=== PATIENT | male | born 1970 | race Caucasian/White ===

== ENCOUNTER 2017-03-25 20:20 | Emergency (ER) | payer BC ==
[2017-03-25 20:25] VITALS: BP 132/87; PULSE 67; RESP 18; TEMP 97.5
--- NOTE | 2017-03-25 21:09 | ED ---
Lower Extremity Injury HPI - General Chief Complaint: Extremity Injury, Lower Stated Complaint: Leg Pain Time Seen by Provider: 03/25/17 20:30 Source: patient, family, RN notes reviewed Mode of arrival: ambulatory Limitations: no limitations - History of Present Illness Initial Comments: This is a 47-year-old male who presents to the emergency department with chief complaint of right calf pain. Patient states that at approximately 6:30 this evening he was loading things into the bed of his truck. He states that he was in an awkward position and felt a pop in his right calf. He states it feels like his calf is coiled up. He states "I know I tore my calf." Patient presented to [facility] and received an x-ray which demonstrated possible calf rupture. They advised him to present to the emergency department. Patient states that at rest pain is 4/10 but on ambulation pain is 10/10. He states he is unable to ambulate due to pain. Denies any other injury or trauma. Denies fever, chills, chest pain, shortness of breath, abdominal pain, nausea or vomiting, constipation or diarrhea, dysuria or hematuria, numbness or tingling, headache or vision changes. - Related Data Home Medications Medication Instructions Recorded Confirmed Esomeprazole Magnesium [NexIUM] 20 mg PO DAILY 03/25/17 03/25/17 Allergies Allergy/AdvReac Type Severity Reaction Status Date / Time Penicillins Allergy Rash/Hives Verified 03/25/17 20:34 Review of Systems ROS Statement: Those systems with pertinent positive or pertinent negative responses have been documented in the HPI. ROS Other: All systems not noted in ROS Statement are negative. Past Medical History Past Medical History: GERD/Reflux History of Any Multi-Drug Resistant Organisms: None Reported Past Surgical History: Bowel Resection Past Psychological History: No Psychological Hx Reported Smoking Status: Never smoker Past Alcohol Use History: None Reported Past Drug Use History: None Reported General Exam - General Exam Comments Initial Comments: General: Awake and alert, well-developed; in no apparent distress. Lying on ED stretcher with at bedside. HEENT: Head atraumatic, normocephalic. Pupils are equal, round and reactive to light. Extraocular movements intact. Neck: Supple. Normal ROM. Cardiovascular: Regular rate and rhythm. No murmurs, rubs or gallops. Chest symmetrical. Respiratory: Lungs clear to auscultation bilaterally. No wheezes, rales or rhonchi. Normal respiratory effort with no use of accessory muscles. Musculoskeletal: There is exquisite tenderness on palpation of right calf. Pain in calf is elicited with dorsiflexion of right foot. Patient has normal range of motion in right ankle and right knee. Sensation is intact. Pedal and posterior tibial pulses are 2+ equal and palpable bilaterally. Parkinson test negative. No tenderness on palpation of the Achilles insertion site on calcaneus. Skin: [place], warm and dry without rashes or lesions. Neurological: Alert and oriented x3. CN II-XII grossly intact. Speech is fluent and answers are appropriate. No focal neuro deficits. Psychiatric: Normal mood and affect. No overt signs of depression or anxiety noted. Limitations: no limitations Course Vital Signs 03/25/17 20:22 Temperature 97.5 F L Pulse Rate 67 Respiratory 18 Rate Blood Pressure 132/87 O2 Sat by Pulse 99 Oximetry Medical Decision Making - Medical Decision Making This is a 47-year-old male who presents to the emergency department with chief complaint of right calf injury. Patient states that x-ray performed at [facility] demonstrated a possible calf rupture. This case was discussed with attending physician, Dr. Arora. There is tenderness on palpation of right calf. No erythema or swelling noted. Pulses are equal and palpable. Parkinson test is negative. Discussed with patient that management will consist of follow- up with orthopedics. Patient and requested further testing at this time, requesting an ultrasound of lower extremity. They were informed that regardless of results patient will be discharged home with referral to orthopedics. I spoke with ultrasound at 2143 who informed me that they do not do ultrasounds of tendons. Patient will be discharged home at this time. He was provided with referral to orthopedics. Patient refuses any prescription for pain medications. Disposition Clinical Impression: Strain of calf muscle Disposition: HOME SELF-CARE Condition: Good Instructions: Muscle Strain (ED) Additional Instructions: Please follow up with Dr. Goodrich orthopedics within 1-2 days. Please follow up with primary care provider within 1-2 days. Return to emergency department if symptoms should worsen or any concerns arise. Referrals: Keily Martinez MD [Primary Care Provider] - 1-2 days Matteo Goodrich MD [STAFF PHYSICIAN] - 1-2 days Time of Disposition: 21:48
== END 2017-03-25 22:20 | disposition home or self-care (01) ==
LOC: EC 20:20
DX: S86.911A Strain of unspecified muscle(s) and tendon(s) at lower leg level, right leg, initial encounter (principal); K21.9 Gastro-esophageal reflux disease without esophagitis; Z79.899 Other long term (current) drug therapy; Z88.0 Allergy status to penicillin; X50.0XXA Overexertion from strenuous movement or load, initial encounter; Y93.89 Activity, other specified
CPT/HCPCS: 99283

== ENCOUNTER 2020-07-15 19:12 | Emergency (ER) | payer BC, OTHER ==
[2020-07-15] MEDS ORDERED: ACETAMINOPHEN TAB 325 MG TAB PO STA (19:38)
[2020-07-15] MEDS ORDERED: IBUPROFEN 600 MG TAB PO STA (19:38)
[2020-07-15] MEDS ORDERED: SODIUM CHLORIDE 0.9% 1,000 ML IV STA (19:38)
--- NOTE | 2020-07-15 19:53 | ED ---
Fever HPI - General Source: patient, RN notes reviewed Mode of arrival: ambulatory Limitations: no limitations <Chris Sampson - Last Filed: 07/15/20 20:45> <Helen Lin - Last Filed: 07/17/20 11:42> - General Chief Complaint: Fever Stated Complaint: SOB,Cough Time Seen by Provider: 07/15/20 19:37 - History of Present Illness Initial Comments: Patient is a 50-year-old male that presents to the emergency department complaining of fever, cough, chest congestion that all started this morning. He noted that he went to work panic, early. He noted that his cough is productive of a clear phlegm. He did note that he gets sinus infections and colds roughly every year and a tenderness at on his chest. She denied any pain or discomfort. He said he can emergency room due to the rapid onset of symptoms today. He denied any chest pain shortness of breath headache nausea vomiting diarrhea constipation fever fatigue chills weakness numbness tingling. (Chris Sampson) - Related Data Home Medications Medication Instructions Recorded Confirmed Esomeprazole Magnesium [NexIUM] 20 mg PO DAILY 03/25/17 03/25/17 Allergies Allergy/AdvReac Type Severity Reaction Status Date / Time Penicillins Allergy Rash/Hives Verified 07/15/20 19:32 Review of Systems ROS Other: All systems not noted in ROS Statement are negative. <Chris Sampson - Last Filed: 07/15/20 20:45> ROS Other: All systems not noted in ROS Statement are negative. <Helen Lin - Last Filed: 07/17/20 11:42> ROS Statement: Those systems with pertinent positive or pertinent negative responses have been documented in the HPI. Past Medical History Past Medical History: GERD/Reflux History of Any Multi-Drug Resistant Organisms: None Reported Past Surgical History: Bowel Resection Past Psychological History: No Psychological Hx Reported Smoking Status: Never smoker Past Alcohol Use History: None Reported Past Drug Use History: None Reported <Chris Sampson - Last Filed: 07/15/20 20:45> General Exam Limitations: no limitations General appearance: alert, in no apparent distress, obese Head exam: Present: atraumatic, normocephalic, normal inspection Eye exam: Present: normal appearance, PERRL, EOMI. Absent: scleral icterus, conjunctival injection, periorbital swelling ENT exam: Present: normal exam, mucous membranes moist Neck exam: Present: normal inspection. Absent: tenderness, meningismus, lymphadenopathy Respiratory exam: Present: normal lung sounds bilaterally. Absent: respiratory distress, wheezes, rales, rhonchi, stridor Cardiovascular Exam: Present: regular rate, normal rhythm, normal heart sounds. Absent: systolic murmur, diastolic murmur, rubs, gallop, clicks GI/Abdominal exam: Present: soft, normal bowel sounds. Absent: distended, tenderness, guarding, rebound, rigid Extremities exam: Present: normal inspection, full ROM, normal capillary refill. Absent: tenderness, pedal edema, joint swelling, calf tenderness Neurological exam: Present: alert, oriented X3, CN II-XII intact Psychiatric exam: Present: normal affect, normal mood Skin exam: Present: warm, dry, intact, normal color, other (Large abdominal scar from previous surgery). Absent: rash <Chris Sampson - Last Filed: 07/15/20 20:45> Course Vital Signs 07/15/20 07/15/20 07/15/20 19:29 19:55 20:04 Temperature 102.0 F H 99.5 F Pulse Rate 95 80 Respiratory 20 20 16 Rate Blood Pressure 145/82 163/92 O2 Sat by Pulse 98 94 L Oximetry 07/15/20 07/15/20 20:16 21:35 Temperature 99.6 F Pulse Rate 84 81 Respiratory 16 18 Rate Blood Pressure 146/90 140/85 O2 Sat by Pulse 94 L 95 Oximetry Medical Decision Making - Lab Data Result diagrams: 07/15/20 19:57 07/15/20 19:57 - EKG Data -: EKG Interpreted by [place] EKG shows normal: sinus rhythm Rate: normal <Chris Sampson - Last Filed: 07/15/20 20:45> - Lab Data Result diagrams: 07/15/20 19:57 07/15/20 19:57 <Helen Lin - Last Filed: 07/17/20 11:42> - Medical Decision Making 50-year-old male complaining of fever cough and chest congestion. 1 L normal saline, chest x-ray, labs, covid test, 600 mg of Motrin, 650 mg of Tylenol ordered. Patient was offered monoclonal antibody treatment but refused and said that he feels like he will be HOME ON SELF QUARANTINE. CASE DISCUSSED WITH DR. LIN, DECIDED THE PATIENT TO DISCHARGE HOME QUARANTINE. (Chris Sampson) I was available for consultation in the emergency department. The history and physical exam were done by the midlevel provider. I was consulted for this patients care. I reviewed the case with the midlevel provider and based on their presentation of the patient, I agree with the assessment, medical decision making and plan of care as documented. The patient is not hypoxic. No signs of respiratory distress. Patient offered BAM treatment and refused. Patient discharged with strict return parameters. Chart was dictated using [email or web address] dictation software. Attempts were made to correct any dictation errors however some typographical errors may persist. Patient was seen during a national state of emergency due to the Covid-19 [place]aug[place] demic. (Helen Lin) - Lab Data Lab Results 07/15/20 07/15/20 07/15/20 Range/Units 19:56 19:57 19:57 WBC 5.7 (3.8-10.6) k/uL RBC 4.50 (4.30-5.90) m/uL Hgb 14.4 (13.0-17.5) gm/dL Hct 40.6 (39.0-53.0) % MCV 90.2 (80.0-100.0) fL MCH 32.0 (25.0-35.0) pg MCHC 35.4 (31.0-37.0) g/dL RDW 13.5 (11.5-15.5) % Plt Count 156 (150-450) k/uL MPV 7.6 Neutrophils % 79 % Lymphocytes % 14 % Monocytes % 5 % Eosinophils % 0 % Basophils % 0 % Neutrophils # 4.5 (1.3-7.7) k/uL Lymphocytes # 0.8 L (1.0-4.8) k/uL Monocytes # 0.3 (0-1.0) k/uL Eosinophils # 0.0 (0-0.7) k/uL Basophils # 0.0 (0-0.2) k/uL Sodium 135 L (137-145) mmol/L Potassium 3.8 (3.5-5.1) mmol/L Chloride 103 (98-107) mmol/L Carbon Dioxide 22 (22-30) mmol/L Anion Gap 10 mmol/L BUN 18 (9-20) mg/dL Creatinine 1.02 (0.66-1.25) mg/dL Est GFR (CKD-EPI)AfAm >90 (>60 ml/min/1.73 sqM) Est GFR (CKD-EPI)NonAf 84 (>60 ml/min/1.73 sqM) Glucose 126 H (74-99) mg/dL Calcium 8.6 (8.4-10.2) mg/dL Total Bilirubin 0.7 (0.2-1.3) mg/dL AST 31 (17-59) U/L ALT 41 (4-49) U/L Alkaline Phosphatase 86 (38-126) U/L Total Protein 7.1 (6.3-8.2) g/dL Albumin 4.2 (3.5-5.0) g/dL Urine Color Urine Appearance (Clear) Urine pH (5.0-8.0) Ur Specific [place] (1.001-1.035) Urine Protein (Negative) Urine Glucose (UA) (Negative) Urine Ketones (Negative) Urine Blood (Negative) Urine Nitrite (Negative) Urine Bilirubin (Negative) Urine Urobilinogen (<2.0) mg/dL Ur Leukocyte Esterase (Negative) Coronavirus (PCR) Detected A (Not Detectd) 07/15/20 Range/Units 20:18 WBC (3.8-10.6) k/uL RBC (4.30-5.90) m/uL Hgb (13.0-17.5) gm/dL Hct (39.0-53.0) % MCV (80.0-100.0) fL MCH (25.0-35.0) pg MCHC (31.0-37.0) g/dL RDW (11.5-15.5) % Plt Count (150-450) k/uL MPV Neutrophils % % Lymphocytes % % Monocytes % % Eosinophils % % Basophils % % Neutrophils # (1.3-7.7) k/uL Lymphocytes # (1.0-4.8) k/uL Monocytes # (0-1.0) k/uL Eosinophils # (0-0.7) k/uL Basophils # (0-0.2) k/uL Sodium (137-145) mmol/L Potassium (3.5-5.1) mmol/L Chloride (98-107) mmol/L Carbon Dioxide (22-30) mmol/L Anion Gap mmol/L BUN (9-20) mg/dL Creatinine (0.66-1.25) mg/dL Est GFR (CKD-EPI)AfAm (>60 ml/min/1.73 sqM) Est GFR (CKD-EPI)NonAf (>60 ml/min/1.73 sqM) Glucose (74-99) mg/dL Calcium (8.4-10.2) mg/dL Total Bilirubin (0.2-1.3) mg/dL AST (17-59) U/L ALT (4-49) U/L Alkaline Phosphatase (38-126) U/L Total Protein (6.3-8.2) g/dL Albumin (3.5-5.0) g/dL Urine Color Yellow Urine Appearance Clear (Clear) Urine pH 5.5 (5.0-8.0) Ur Specific [place] 1.024 (1.001-1.035) Urine Protein Trace H (Negative) Urine Glucose (UA) Negative (Negative) Urine Ketones Negative (Negative) Urine Blood Negative (Negative) Urine Nitrite Negative (Negative) Urine Bilirubin Negative (Negative) Urine Urobilinogen <2.0 (<2.0) mg/dL Ur Leukocyte Esterase Negative (Negative) Coronavirus (PCR) (Not Detectd) - EKG Data EKG Comments: Ventricular rate 83 bpm, NE interval 140 ms, QRS duration 88 ms, QT/QTC 358/420 ms, PRT axis 34/19/25. Normal sinus rhythm, normal ECG. (Chris Sampson) Disposition Is patient prescribed a controlled substance at d/c from ED?: No Time of Disposition: 20:47 <Chris Sampson - Last Filed: 07/15/20 20:45> <Helen Lin - Last Filed: 07/17/20 11:42> Clinical Impression: COVID-19 Disposition: HOME SELF-CARE Condition: Stable Instructions (If sedation given, give patient instructions): Coronavirus Disease 2019 (COVID-19), Fever in Adults (ED) Additional Instructions: Please return to the Emergency Department if symptoms worsen or any other concerns. Self quarantine for 10-14 days. Follow-up with primary care after that. Return if shortness of breath, dyspnea, any red flag symptoms appear. Referrals: Keily Martinez MD [Primary Care Provider] - 1-2 days
[2020-07-15 20:08] LABS: Basophils % (A) 0 %; Eosinophils % (A) 0 %; HCT 40.6 % (39.0-53.0); HGB 14.4 gm/dL (13.0-17.5); Lymphocytes # (A) 0.8 k/uL (1.0-4.8); Lymphocytes % (A) 14 %; MCHC 35.4 g/dL (31.0-37.0); MCV 90.2 fL (80.0-100.0); Mean Platelet Volume 7.6; Monocytes # (A) 0.3 k/uL (0-1.0); Monocytes % (A) 5 %; Neutrophils # (A) 4.5 k/uL (1.3-7.7); Neutrophils % (A) 79 %; Platelet Count 156 k/uL (150-450); RDW 13.5 % (11.5-15.5); WBC 5.7 k/uL (3.8-10.6)
[2020-07-15 20:16] LABS: ALT 41 U/L (4-49); AST 31 U/L (17-59); African American GFR (CKD) >90 (>60 ml/min/1.73 sqM); Albumin 4.2 g/dL (3.5-5.0); Alkaline Phosphatase 86 U/L (38-126); Anion Gap 10 mmol/L; Blood Urea Nitrogen 18 mg/dL (9-20); Calcium 8.6 mg/dL (8.4-10.2); Carbon Dioxide 22 mmol/L (22-30); Chloride 103 mmol/L (98-107); Glucose 126 mg/dL (74-99); Non-African American GFR(CKD) 84 (>60 ml/min/1.73 sqM); Potassium 3.8 mmol/L (3.5-5.1); Sodium 135 mmol/L (137-145); Total Bilirubin 0.7 mg/dL (0.2-1.3); Total Protein 7.1 g/dL (6.3-8.2)
--- NOTE | 2020-07-15 20:28 | XR ---
EXAMINATION TYPE: XR chest 2V DATE OF EXAM: 07/15/2020 COMPARISON: NONE HISTORY: Fever and cough TECHNIQUE: FINDINGS: Heart and mediastinum are normal. Lungs are clear. Diaphragm is normal. Bony thorax appears normal. IMPRESSION: Normal chest.
[2020-07-15 20:38] LABS: Appearance,Urine Clear (Clear); Bilirubin,Urine Negative (Negative); Blood,Urine Negative (Negative); Color,Urine Yellow; Glucose,Urine (UA) Negative (Negative); Ketones,Urine Negative (Negative); Leukocyte Esterase,Urine Negative (Negative); Nitrite,Urine Negative (Negative); PH, Urine 5.5 (5.0-8.0); Protein,Urine Trace (Negative); Specific Gravity,Urine 1.024 (1.001-1.035); Urobilinogen,Urine <2.0 mg/dL (<2.0)
[2020-07-15 21:37] VITALS: BP 140/85; PULSE 81; RESP 18; TEMP 99.6
== END 2020-07-15 21:35 | disposition home or self-care (01) ==
LOC: EC 19:12
DX: U07.1 COVID-19 (principal); K21.9 Gastro-esophageal reflux disease without esophagitis; Z88.0 Allergy status to penicillin
CPT/HCPCS: 36415; 71046; 80053; 81003; 85025; 87635; 93005; 96360; 99285

== ENCOUNTER 2020-07-17 17:56 | Emergency (ER) | payer BC, OTHER ==
[2020-07-17 18:09] VITALS: RESP 18
[2020-07-17] MEDS ORDERED: DEXAMETHASONE SOD PHOSPHATE 10 MG/ML 1 ML VIAL IV STA (18:38)
[2020-07-17] MEDS ORDERED: SODIUM CHLORIDE 0.9% 2,000 ML IV ONE (18:38)
--- NOTE | 2020-07-17 18:56 | ED ---
URI HPI - General Chief Complaint: Upper Respiratory Infection Stated Complaint: Dehydrated Time Seen by Provider: 07/17/20 18:18 Source: patient Mode of arrival: ambulatory Limitations: no limitations - History of Present Illness Initial Comments: Mitch is a 50-year-old male who presents the ER today for reevaluation of [facility]. Patient reports that he began having URI-like symptoms on Saturday or Saturday her last week. He was seen on Saturday and diagnosed at [facility]. He was advised to treat it symptomatically with Tylenol Motrin and hydration. Patient reports that last night he had significant coughing spells which limited his ability to sleep. He did feel somewhat better this morning but this evening began to feel worse again. He contacted a friend who works as a health department who advised him to return to the ER to discuss possible monoclonal antibody treatment. She denies any chest pain palpitations nausea or vomiting. - Related Data Home Medications Medication Instructions Recorded Confirmed Esomeprazole Magnesium [NexIUM] 20 mg PO DAILY 03/25/17 03/25/17 Allergies Allergy/AdvReac Type Severity Reaction Status Date / Time Penicillins Allergy Rash/Hives Verified 07/15/20 19:32 Review of Systems ROS Statement: Those systems with pertinent positive or pertinent negative responses have been documented in the HPI. ROS Other: All systems not noted in ROS Statement are negative. Past Medical History Past Medical History: GERD/Reflux History of Any Multi-Drug Resistant Organisms: None Reported Past Surgical History: Bowel Resection Past Psychological History: No Psychological Hx Reported Smoking Status: Never smoker Past Alcohol Use History: None Reported Past Drug Use History: None Reported General Exam - General Exam Comments Initial Comments: Physical Exam GENERAL: Patient is well-developed and well-nourished. Patient is nontoxic and well-hydrated and is in no distress. HENT: Normocephalic, Atraumatic. EYES: PERRL, EOMI PULMONARY: Unlabored respirations. CARDIOVASCULAR: RRR Warm and well perfused extremities ABDOMEN: Non-distended SKIN: No rashes or bruising : Deferred NEUROLOGIC: Alert and oriented Normal speech Normal gait MUSCULOSKELETAL: Moving all extremities with no apparent injury PSYCHIATRIC: No SI/HI Limitations: no limitations Course Vital Signs 07/17/20 07/17/20 07/17/20 18:05 19:49 20:00 Temperature 98.3 F Pulse Rate 73 68 Respiratory 18 18 18 Rate Blood Pressure 143/80 129/79 124/68 O2 Sat by Pulse 98 95 Oximetry Medical Decision Making - Medical Decision Making The patient was seen and evaluated history is obtained from the patient and review of medical record 50-year-old obese male with a BMI of 36.6 meets criteria for monoclonal antibody treatment, he consents to this and will be treated with such Patient tolerated on-call antibody infusion without reaction, was observed for 1 hour post infusion and discharged home Disposition Clinical Impression: COVID-19 Disposition: HOME SELF-CARE Condition: Stable Instructions (If sedation given, give patient instructions): Coronavirus Disease 2019 (COVID-19) Is patient prescribed a controlled substance at d/c from ED?: No Referrals: Keily Martinez MD [Primary Care Provider] - 1-2 days
--- NOTE | 2020-07-17 19:24 | XR ---
EXAMINATION TYPE: XR chest 1V portable DATE OF EXAM: 07/17/2020 COMPARISON: 07/15/2020 HISTORY: Chest congestion and cough TECHNIQUE: Single frontal view of the chest is obtained. FINDINGS: There is no focal air space opacity, pleural effusion, or pneumothorax seen. The cardiac silhouette size is within normal limits. The osseous structures are intact. IMPRESSION: No acute process.
[2020-07-17] MEDS ORDERED: BAMLANIVIMAB (EUA) 700 MG in SODIUM CHLORIDE 0.9% 50 ML IVPB ONE (19:40)
[2020-07-17 21:03] VITALS: BP 137/77; PULSE 75; TEMP 99.5
== END 2020-07-17 21:03 | disposition home or self-care (01) ==
LOC: EC 17:56
DX: U07.1 COVID-19 (principal); K21.9 Gastro-esophageal reflux disease without esophagitis; E86.0 Dehydration
CPT/HCPCS: 71045; 99283; 96365; 96367; J1100; Q0239

== ENCOUNTER → 2023-01-03 | Outpatient (CLI) | payer OTHER, BC ==
--- NOTE | 2023-01-03 13:33 | XR ---
EXAMINATION TYPE: XR foot complete RT DATE OF EXAM: 01/03/2023 COMPARISON: NONE HISTORY: Pain TECHNIQUE: Three views are submitted. 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 Diffuse osteopenia. There is postsurgical change invo lving the distal tibia. Small calcaneal spur. IMPRESSION: 1. No acute fracture or dislocation. If symptoms persist, follow-up exam in 7 to 10 days could be ob tained. 2. 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
== END | disposition home or self-care (01) ==
LOC: RADXRYALE 13:08
PROVIDERS: ATTEND Internal Medicine
DX: M19.071 Primary osteoarthritis, right ankle and foot (principal)